=== PATIENT | female | born 1980 | race Caucasian/White ===

== ENCOUNTER 2019-04-21 12:48 | Emergency (ER) | payer OTHER ==
--- NOTE | 2019-04-21 13:50 | RAD REPORT ---
EXAM DESCRIPTION: CT - Head Brain Wo Cont - 04/21/2019 1:43 pm CLINICAL HISTORY: Numbness COMPARISON: None. TECHNIQUE: Computed axial tomography of the head was obtained. IV contrast was not requested. All CT scans are performed using dose optimization technique as appropriate and may include automated exposure control or mA/KV adjustment according to patient size. FINDINGS: An intracranial bleed is not seen . The ventricles are normal in caliber. No extra-axial fluid collection is noted. Fluid within the sinuses/ mastoids is not seen. IMPRESSION: No acute intracranial abnormality is seen. If patient's symptoms persist MRI of the bra in would be recommended.
--- NOTE | 2019-04-21 14:02 | ER ---
Nurse's Notes [facility] Name: Temi Butterfield Age: 38 yrs Sex: Female : 1980 Arrival Date: 04/21/2019 Time: 12:50 Bed 26 Private MD: Diagnosis: Bruk's palsy Presentation: 04/21 13:04 Presenting complaint: Patient states: Yesterday morning, swelling and numbness of ca1 tongue and L side of face. Ringing on L ear. VAN neagtive. Transition of care: patient was not received from another setting of care. Onset of symptoms was April 20, 2019. Risk Assessment: Do you want to hurt yourself or someone else? Patient reports no desire to harm self or others. Initial Sepsis Screen: Does the patient meet any 2 criteria? No. Patient's initial sepsis screen is negative. Does the patient have a suspected source of infection? No. Patient's initial sepsis screen is negative. Care prior to arrival: None. 13:04 Method Of Arrival: Ambulatory ca1 13:04 Acuity: LILLIAM 3 ca1 Historical: - Allergies: 13:07 No Known Allergies; ca1 - Home Meds: 13:07 Metformin Oral [Active]; acebutolol 200 mg Oral cap 1 cap once daily [Active]; ca1 - PMHx: 13:07 Diabetes - NIDDM; Hypertension; ca1 - PSHx: 13:07 None; ca1 - Immunization history:: Adult Immunizations up to date, Flu vaccine is not up to date. - Coronavirus screen:: The patient has NOT traveled to [place], [place], or [place] in the past 14 days. The patient has NOT had contact with known/suspected case of Coronavirus?. - Social history:: Smoking status: Patient denies any tobacco usage or history of. - Ebola Screening: : Patient negative for fever greater than or equal to 101.5 degrees Fahrenheit, and additional compatible Ebola Virus Disease symptoms Patient denies exposure to infectious person Patient denies travel to an Ebola-affected area in the 21 days before illness onset No symptoms or risks identified at this time. Screenin:27 Abuse screen: Denies threats or abuse. Denies injuries from another. Nutritional ph screening: No deficits noted. Tuberculosis screening: No symptoms or risk factors identified. Fall Risk None identified. Assessment: 13:14 General: Appears in no apparent distress. comfortable. Pain: Complains of pain in ph forehead, left eye and left islam. Neuro: Level of Consciousness is awake, alert, obeys commands, Oriented to person, place, time, situation, Customer Engagement Manager are equal bilaterally Moves all extremities. Full function Gait is steady, Speech is normal, Facial symmetry appears normal, Facial symmetry: tongue is midline, Pupils are PERRLA, Intact L side of mouth and L eye w/ droop noted. Reports headache in left Denies weakness blurred vision dizziness, difficulty swallowing, paresthesias. Cardiovascular: Capillary refill < 3 seconds in bilateral fingers Patient's skin is warm and dry. Respiratory: Airway is patent Respiratory effort is even, unlabored, Respiratory pattern is regular, symmetrical. GI: No signs and/or symptoms were reported involving the gastrointestinal system. EENT: Lid(s) drooping on left eye. Derm: Skin is intact, is healthy with good turgor, Skin is pink, warm \T\ dry. Musculoskeletal: Circulation, motion, and sensation intact. Range of motion: intact in all extremities. 14:22 Reassessment: Patient appears in no apparent distress at this time. Patient and/or ph family updated on plan of care and expected duration. Pain level reassessed. Patient is alert, oriented x 3, equal unlabored respirations, skin warm/dry/pink. Pt d/c home w/ SO, instructed to follow-up w/ neuro. Vital Signs: 13:07 BP 139 / 72; Pulse 82; Resp 16 S; Temp 99(O); Pulse Ox 98% on R/A; Weight 122.47 kg ca1 (R); Height 5 ft. 2 in. (157.48 cm) (R); Pain 0/10; 14:15 BP 127 / 70; Pulse 76; Resp 18; Temp 97.9; Pulse Ox 99% on R/A; ph 13:07 Body Mass Index 49.38 (122.47 kg, 157.48 cm) ca1 NIH Stroke Scale Scores: 13:27 NIHSS Score: 1 ph ED Course: 12:50 Patient arrived in ED. rg4 12:58 Darius Felton PA is PHCP. jr8 12:58 Cezar Turner MD is Attending Physician. jr8 13:06 Triage completed. ca1 13:07 Arm band placed on right wrist. ca1 13:14 Bell Calvillo, RN is Primary Nurse. ph 13:28 Patient has correct armband on for positive identification. Bed in low position. Call light in reach. Side rails up X 1. Pulse ox on. NIBP on. Door closed. Noise minimized. 14:00 Socrates Larson MD is Referral Physician. jr8 14:24 No provider procedures requiring assistance completed. IV discontinued, intact, ph bleeding controlled, No redness/swelling at site. Pressure dressing applied. Administered Medications: No medications were administered Outcome: 14:01 Discharge ordered by . jr8 14:25 Discharged to home ambulatory, with significant other. ph 14:25 Condition: good 14:25 Discharge instructions given to patient, Instructed on discharge instructions, follow up and referral plans. medication usage, Demonstrated understanding of instructions, follow-up care, medications, Prescriptions given X 1. 14:26 Patient left the ED. NIH Stroke Scale - NIH Stroke Score Date: 04/21/2019 Time: 13:27 Total Score = 1 1a. Level of Consciousness (LOC) - 0(Alert) 1b. Level of Consciousness (LOC) (Year \T\ Age) - 0(Both) 1c. LOC Commands (Open \T\ Closes Eyes/Senior [employer] Developer) - 0(Both) 2. Best Gaze (Lateral Gaze Paresis) - 0(Normal) 3. Visual Field Loss - 0(No visual loss) 4. Facial Palsy - 1(Minor Paralysis) 5a. Left Arm: Motor (10-second hold) - 0(No drift) 5b. Right Arm: Motor (10-second hold) - 0(No drift) 6a. Left Leg: Motor (5-second hold - always test supine) - 0(No drift) 6b. Right Leg: Motor (5-second hold - always test supine) - 0(No drift) 7. Limb Ataxia (finger/nose \T\ heel/thomas - test with eyes open) - 0(Absent) 8. Sensory Loss (pinprick arms/legs/face) - 0(Normal) 9. Best Language: Aphasia (description/naming/reading) - 0(No aphasia) 10. Dysarthria (speech clarity - read or repeat words) - 0(Normal) 11. Extinction and Inattention (visual/tactile/auditory/spatial/personal) - 0(No abnormality) Initials: ph Signatures: Darius Felton PA PA jr8 Bell Calvillo, RN RN ph Leann Au rg4 Callie Bates, RN RN ca1
--- NOTE | 2019-04-21 14:03 | EDPHYS ---
Physician Documentation [facility] Name: Temi Butterfield Age: 38 yrs Sex: Female : 1980 Arrival Date: 04/21/2019 Time: 12:50 Bed 26 Private MD: ED Physician Cezar Turner HPI: 04/21 13:30 This 38 yrs old Female presents to ER via Ambulatory with complaints of jr8 Facial droop. 13:30 The patient's problem is reported as a facial droop, on left, paresthesias, in left jr8 side of face. Onset: The symptoms/episode began/occurred acutely, yesterday. Duration: This was a single incident. Context: occurred at home, occurred while the patient was at rest. The symptoms are alleviated by nothing. The symptoms are aggravated by nothing. Associated signs and symptoms: Pertinent positives: headache. Severity of symptoms: At their worst the symptoms were mild in the emergency department the symptoms are unchanged. Patient's baseline: Neuro: alert and fully oriented, Motor: no deficits, Ambulation: walks without assistance, Speech: normal. The patient has not experienced similar symptoms in the past. The patient has not recently seen a physician. Historical: - Allergies: 13:07 No Known Allergies; ca1 - Home Meds: 13:07 Metformin Oral [Active]; acebutolol 200 mg Oral cap 1 cap once daily [Active]; ca1 - PMHx: 13:07 Diabetes - NIDDM; Hypertension; ca1 - PSHx: 13:07 None; ca1 - Immunization history:: Adult Immunizations up to date, Flu vaccine is not up to date. - Coronavirus screen:: The patient has NOT traveled to [place], [place], or [place] in the past 14 days. The patient has NOT had contact with known/suspected case of Coronavirus?. - Social history:: Smoking status: Patient denies any tobacco usage or history of. - Ebola Screening: : Patient negative for fever greater than or equal to 101.5 degrees Fahrenheit, and additional compatible Ebola Virus Disease symptoms Patient denies exposure to infectious person Patient denies travel to an Ebola-affected area in the 21 days before illness onset No symptoms or risks identified at this time. ROS: 13:30 Eyes: Negative for injury, pain, redness, and discharge, ENT: Negative for injury, jr8 pain, and discharge, Neck: Negative for injury, pain, and swelling, Cardiovascular: Negative for chest pain, palpitations, and edema, Respiratory: Negative for shortness of breath, cough, wheezing, and pleuritic chest pain, Abdomen/GI: Negative for abdominal pain, nausea, vomiting, diarrhea, and constipation, Back: Negative for injury and pain, MS/Extremity: Negative for injury and deformity, Skin: Negative for injury, rash, and discoloration. 13:30 Neuro: Positive for headache, numbness, tingling, of the face. Exam: 13:30 Radiologist reports: No acute findings jr8 13:30 Head/Face: Normocephalic, atraumatic. Eyes: Pupils equal round and reactive to light, extra-ocular motions intact. Lids and lashes normal. Conjunctiva and sclera are non-icteric and not injected. Cornea within normal limits. Periorbital areas with no swelling, redness, or edema. ENT: Nares patent. No nasal discharge, no septal abnormalities noted. Tympanic membranes are normal and external auditory canals are clear. Oropharynx with no redness, swelling, or masses, exudates, or evidence of obstruction, uvula midline. Mucous membranes moist. Neck: Trachea midline, no thyromegaly or masses palpated, and no cervical lymphadenopathy. Supple, full range of motion without nuchal rigidity, or vertebral point tenderness. No Meningismus. Cardiovascular: Regular rate and rhythm with a normal S1 and S2. No gallops, murmurs, or rubs. Normal PMI, no JVD. No pulse deficits. Respiratory: Lungs have equal breath sounds bilaterally, clear to auscultation and percussion. No rales, rhonchi or wheezes noted. No increased work of breathing, no retractions or nasal flaring. Abdomen/GI: Soft, non-tender, with normal bowel sounds. No distension or tympany. No guarding or rebound. No evidence of tenderness throughout. Back: No spinal tenderness. No costovertebral tenderness. Full range of motion. Skin: Warm, dry with normal turgor. Normal color with no rashes, no lesions, and no evidence of cellulitis. MS/ Extremity: Pulses equal, no cyanosis. Neurovascular intact. Full, normal range of motion. 13:30 Neuro: Orientation: to person, place, time \T\ situation. Mentation: is normal, Memory: is normal, immediate memory is intact, recent memory is intact, remote memory is intact, Cranial nerves: CN I not tested, normal except CN7 Palsy present, visual delgado are intact. extraocular movements are intact, facial droop noted on left, with forehead involved. decreased ocular muscle tone in the left eye, Nystagmus is absent. Speech is clear and appropriate. Tongue strength is normal, Cerebellar function: normal finger to nose testing, heel to thomas testing is normal, Motor: moves all fours, strength is 5/5 in all extremities, Sensation: no obvious gross deficits, Gait: is steady, appropriate for age, seizure activity, is not displayed by the patient, Abnormal movements: there are no abnormal movements. Vital Signs: 13:07 BP 139 / 72; Pulse 82; Resp 16 S; Temp 99(O); Pulse Ox 98% on R/A; Weight 122.47 kg ca1 (R); Height 5 ft. 2 in. (157.48 cm) (R); Pain 0/10; 14:15 BP 127 / 70; Pulse 76; Resp 18; Temp 97.9; Pulse Ox 99% on R/A; ph 13:07 Body Mass Index 49.38 (122.47 kg, 157.48 cm) ca1 NIH Stroke Scale Scores: 13:27 NIHSS Score: 1 ph MDM: 12:58 Patient medically screened. rojas 13:59 Data reviewed: vital signs, nurses notes, lab test result(s), radiologic studies, CT jr8 scan. Data interpreted: Pulse oximetry: on room air is 98 %. Interpretation: normal. Counseling: I had a detailed discussion with the patient and/or guardian regarding: the historical points, exam findings, and any diagnostic results supporting the discharge/admit diagnosis, radiology results, the need for outpatient follow up, a family practitioner, a neurologist, to return to the emergency department if symptoms worsen or persist or if there are any questions or concerns that arise at home. ED course: Discussed with patient need for tight glucose control. Will have patient f/u with Neuro and FM . 04/21 13:31 Order name: Glucose, Ancillary Testing; Complete Time: 13:33 EDMS 04/21 13:15 Order name: CT Head Brain wo Cont jr8 04/21 13:15 Order name: Glucose Level; Complete Time: 13:19 jr8 04/21 14:14 Order name: CT; Complete Time: 14:17 EDMS Administered Medications: No medications were administered Disposition: 15:16 Co-signature as Attending Physician, Cezar Turner MD I agree with the assessment and [facility] plan of care. Disposition: 04/21/19 14:01 Discharged to Home. Impression: Burk's palsy. - Condition is Stable. - Discharge Instructions: Burk Palsy, Adult. - Prescriptions for Prednisone 20 mg Oral Tablet - take 3 tablets by ORAL route once daily for 7 days; 21 tablet. - Medication Reconciliation Form, Thank You Letter, Antibiotic Education, Prescription Opioid Use, Family Work Release form. - Follow up: Socrates Larson MD; When: 1 week; Reason: Recheck today's complaints, Continuance of care, Re-evaluation by your physician. - Problem is new. - Symptoms have improved. NIH Stroke Scale - NIH Stroke Score Date: 04/21/2019 Time: 13:27 Total Score = 1 1a. Level of Consciousness (LOC) - 0(Alert) 1b. Level of Consciousness (LOC) (Year \T\ Age) - 0(Both) 1c. LOC Commands (Open \T\ Closes Eyes/Middle School Humanities Teacher) - 0(Both) 2. Best Gaze (Lateral Gaze Paresis) - 0(Normal) 3. Visual Field Loss - 0(No visual loss) 4. Facial Palsy - 1(Minor Paralysis) 5a. Left Arm: Motor (10-second hold) - 0(No drift) 5b. Right Arm: Motor (10-second hold) - 0(No drift) 6a. Left Leg: Motor (5-second hold - always test supine) - 0(No drift) 6b. Right Leg: Motor (5-second hold - always test supine) - 0(No drift) 7. Limb Ataxia (finger/nose \T\ heel/thomas - test with eyes open) - 0(Absent) 8. Sensory Loss (pinprick arms/legs/face) - 0(Normal) 9. Best Language: Aphasia (description/naming/reading) - 0(No aphasia) 10. Dysarthria (speech clarity - read or repeat words) - 0(Normal) 11. Extinction and Inattention (visual/tactile/auditory/spatial/personal) - 0(No abnormality) Initials: ph Signatures: Dispatcher [employer] Cezar Marquez MD MD cha Roszak, Darius, PA PA jr8 Bell Calvillo, RN RN AcCallie motta RN RN ca1 Corrections: (The following items were deleted from the chart) 14:26 14:01 04/21/2019 14:01 Discharged to Home. Impression: Burk's palsy. Condition ph is Stable. Forms are Medication Reconciliation Form, Thank You Letter, Antibiotic Education, Prescription Opioid Use. Follow up: Socrates Larson; When: 1 week; Reason: Recheck today's complaints, Continuance of care, Re-evaluation by your physician. Problem is new. Symptoms have improved. jr8
[2019-04-21 14:38] VITALS: BP 139/72; TEMP 99; O2SAT 98
== END 2019-04-21 14:26 | disposition home or self-care (01) ==
LOC: ER 12:48
DX: G51.0 Bell's palsy (principal); I10 Essential (primary) hypertension; E11.9 Type 2 diabetes mellitus without complications
CPT/HCPCS: 70450; 82947; 99283